=== PATIENT | male | born 1935 | race Caucasian/White ===

== ENCOUNTER 2016-12-14 14:20 | Inpatient (IN) | payer MEDICARE, BC ==
[~2016-12-14] VITALS: Ht 182.9 cm; Wt 92.0 kg
--- NOTE | ~2016-12-14 | FU ---
[facility] Nutrition Therapy DATE: 12/17/16 Patient: JUNIOR Hannah RAINUGHERTY Physician: STEPHANIE Address: [address] [facility] Room/Bed: [address], Zip: [place] [address] Admit Date: 12/14/16 Date of : 35 Height: 6 0 Weight: 202 92 NUTRITION MONITORING/FOLLOW-UP: Reason: Nutrition follow-up/comfort care note Diet: NPO Assessment: [facility] chart reviewed, events noted. Patient is now comfort measures only. RD intervention not appropriate, see recs below. Recommendations: Please consult RD with any further nutritional needs. Status: Comfort care only Respectfully, Vania Sandoval RD, LD Food and Nutritional Services [facility] cc: client file
--- NOTE | ~2016-12-14 | EKG ---
PATIENT: JUNIOR SANDRA UNIT #: [id number] Ventricular Rate: 108 BPM Atrial Rate: 133 BPM QRS Duration: 130 ms Q-T Interval: 360 ms QTC Calculation(Bezet): 482 ms Calculated R Fossil: -47 degrees Calculated T Fossil: 105 degrees Diagnosis Line: Sinus tachycardia with frequent PAC's and PVC's Diagnosis Line: Left axis deviation Diagnosis Line: Left anterior fascicular block Diagnosis Line: Non-specific intra-ventricular conduction block Diagnosis Line: T wave abnormality, consider lateral ischemia Diagnosis Line: Abnormal ECG Diagnosis Line: When compared with ECG of 14-DEC-2016 18:44, Diagnosis Line: Rate faster and frequent PAC's present Diagnosis Line: QT has lengthened Diagnosis Line: Confirmed by MARIMAR SERNA MD ([id number]) on Diagnosis Line: 12/16/2016 12:22:20 PM INTERPRETING MD: JASPER
--- NOTE | ~2016-12-14 | CO ---
Unit #: [id number] #: [id number] Patient: JUNIOR Hannah FLORES [id number] [address] [address] [id number] I MR#: [id number] NAME: JUNIOR Hannah FLORES. ROOM: [facility] Age: 81 Sex: M Admission Date: 12/14/2016 : 1935 Attending Physician: Gregory Perales M.D. Primary Care Physician: Angélica Angeles Consultation Date: 12/14/2016 CONSULTATION REPORT HISTORY OF PRESENT ILLNESS Mr. Flores is an 81-year-old gentleman with a history of severe vascular disease who has had a previous aortobifemoral bypass, coronary artery bypass grafting and a thoracic aortic aneurysm repair with a long history of hypertension. He presents with diffuse abdominal pain that has been going on since last Thursday. He said today it became much more severe and was associated with dark foul smelling stool that was loose and multiple episodes of vomiting. In the emergency room he had severe abdominal pain that was unrelieved with morphine. CT scan was consistent with ischemic bowel with extensive portal venous gas. When I saw and evaluated the patient he had diffuse peritoneal sign. PAST MEDICAL HISTORY As above. 1. Reflux. 2. Osteoarthritis. 3. Previous ventral hernia repair with mesh. 4. Benign prostatic hypertrophy. 5. Chronic obstructive pulmonary disease. SOCIAL HISTORY Denies the use of tobacco or alcohol. He is a retired realtor. He is and his is at the bedside. She has dementia. Friends and other family members are available. FAMILY HISTORY Heart disease. ALLERGIES No allergies to medications. CURRENT MEDICATIONS 1. Testerol. 2. Lisinopril. 3. Omeprazole. 4. Lovastatin. 5. Ipratropium. 6. Flomax. 7. Ranexa. 8. Aspirin. REVIEW OF SYSTEMS Otherwise unremarkable. Unit #: [id number] #: [id number] Patient: JUNIOR Hannah FLORES PHYSICAL EXAMINATION GENERAL: He was awake, alert and oriented, but was complaining of severe abdominal pain and nausea. VITALS: Temperature in the emergency room initially was 98.3, pulse 117, respiratory rate 18, blood pressure 113/63. HEENT: No carotid bruits. LUNGS: Clear. HEART: Regular rhythm, but tachy. I did not appreciate a murmur. ABDOMEN: Diffusely distended and tender with guarding and rebound throughout despite having had morphine. He had multiple surgical scars. There is no incarcerated hernia. EXTREMITIES: no edema. NEUROLOGIC: Grossly intact. DIAGNOSTIC STUDIES IMAGING: CT scan, ischemic bowel with extensive portal venous gas, possible partial small bowel obstruction, previous aortobifemoral bypass. LABORATORY: Basic metabolic panel was noted to have serum CO2 of 18, BUN 75, creatinine 2, blood glucose 234, calcium 7.8, albumin 3.3. Hemoglobin 14.2, white blood cell count 12,100, Platelets 159,000. Lactic acid 3.1. ASSESSMENT/PLAN Patient with severe abdominal pain and CT evidence of ischemia bowel with peritoneal signs on examination and evidence of metabolic acidosis on labs. I discussed with the patient the diagnosis and treatment options. At this time we plan on doing emergent exploratory laparotomy with possible bowel resection. The patient understands the severity of the situation, but agrees to proceed. We discussed risks, benefits and complications, including the possibility of . The patient understands and agrees to proceed. Dictated by... Gregory Perales M.D. MIMI/carri TD: 12/15/2016 06:59 JOB #: [id number] CONSULTATION REPORT Page 1 of 1 X Gregory Perales MD CONSULTATION REPORT
--- NOTE | ~2016-12-14 | OR ---
Unit #: [id number] #: [id number] Patient: JUNIOR Hannah FLORES [id number] [address] [place], [place] [address] [id number] MR#: [id number] NAME: JUNIOR Hannah FLORES. ROOM: [facility] Date of Procedure: 12/14/2016 Admission Date: 12/14/2016 Surgeon: Gregory Perales M.D. : 1935 Attending Physician: Gregory Perales M.D. Primary Care Physician: Angélica Angeles OPERATIVE REPORT PREOPERATIVE DIAGNOSIS Ischemic small bowel. POSTOPERATIVE DIAGNOSIS Diffuse moderate to severe ischemic small bowel. PROCEDURES PERFORMED Exploratory laparotomy and lysis of adhesions. ANESTHESIA General endotracheal anesthesia. FLUIDS 4.5 L of normal saline for resuscitation. ESTIMATED BLOOD LOSS 150 mL. FINDINGS The patient had diffuse moderate to severe ischemic bowel from the ligament of Treitz to 40 cm from the ileocecal valve. There were several adhesions; none of which were obstructing. Colon was nonischemic. INDICATIONS FOR PROCEDURE An 81-year-old gentleman presents to the ER with severe abdominal pain that had been worsening since Thursday, and on radiologic examination, he had severe ischemic bowel with extensive portal venous gas. His exam was one of peritonitis. DESCRIPTION OF PROCEDURE The patient was transported after the initiation of resuscitation in the emergency room and administration of IV antibiotics, to the operating room. After induction of general endotracheal anesthesia, nasogastric tube and Polanco catheter were placed. His abdominal wall was clipped of hair and he was prepped and draped in the usual sterile fashion. A midline incision was made. We dissected down through the soft tissue and entered the peritoneal cavity. Upon entering the peritoneal cavity, cloudy turbid fluid and foul smell were noted. As I opened the fascia throughout the extent of the incision, there were a few adhesions to the anterior abdominal wall that were taken down by sharp dissection, but there were no enterotomies or injuries to the bowel. The small bowel was ischemic with some areas that were severe and some that were moderate, but Unit #: [id number] #: [id number] Patient: JUNIOR Hannah FLORES the ischemia extended from the ligament of Treitz to approximately 40 cm from the ileocecal valve. The ascending, transverse, and left colon down to the rectosigmoid were not ischemic. He just had diffuse small bowel ischemia. There was no segmental distribution, and resection would have required resection from the fourth portion of the duodenum to the distal ileum. I irrigated and ensured that the bowel was in the normal position with no twisting of the mesentery, and watched the bowel for at least 20 to 30 minutes and there was no improvement in the ischemia. I irrigated the peritoneal cavity and ensured there was good hemostasis. The NG tube was well positioned. At this point, I felt resection was not in the patient's best interest, so we put the bowel back in the anatomic position, again irrigated with warm saline, suctioned the irrigant out, and the irrigant came back clear. The fascia was closed with multiple #1 Vicryl interrupted sutures. The fascia was irrigated with saline and then closed with sterile skin willa. Dry sterile dressing was placed. The patient was transported to recovery. He will be admitted to the intensive care unit, and put on antibiotics and heparin drip, and we will continue to resuscitate and support him as needed. I had a long discussion with the family members that were present to include his , their close friend who helps care for the , and several nieces and nephews. We discussed the poor prognosis and the severity of the condition. None of them were in position to know about his living will or feel comfortable giving a DNR order. So, at this point, they are going to try to contact his brother, who is the health care surrogate and notify him of the condition of the patient and see if there is in fact a living will. The rest of family was in agreement with continued aggressive management at this point. Dictated by... Charito Licea/skylar TD: 12/15/2016 05:20 JOB #: [id number] OPERATIVE REPORT Page 1 of 1 X Gregory Perales MD PROCEDURE OPERATIVE NOTE
--- NOTE | ~2016-12-14 | CO ---
Unit #: [id number] #: [id number] Patient: JUNIOR Hannah FLORES [id number] [address] [place], [place] [address] [id number] MR#: [id number] NAME: JUNIOR Hannah FLORES. ROOM: [facility] Age: 81 Sex: M Admission Date: 12/14/2016 : 1935 Attending Physician: Gregory Perales M.D. Primary Care Physician: Angélica Angeles Consultation Date: 12/15/2016 CONSULTATION REPORT REASON FOR CONSULTATION Irregular heart rate and cardiac management. HISTORY OF PRESENT ILLNESS The patient is an 81-year-old male who follows with Dr. Moore. Most of his history had to be obtained from the chart and the patient's family. He is currently intubated, and is on mechanical ventilation. Reportedly, the patient has a history of coronary artery bypass grafting x3, atrial flutter with history of ablation, severe vascular disease with previous aortofemoral bypass, thoracic aortic aneurysm repair, hypertension, hyperlipidemia, peripheral arterial disease, GERD, BPH, osteoarthrosis. Reportedly, the patient has been having a diffuse abdominal pain that had been going on since last Thursday. On day of admission, it became more severe and was associated with dark, loose stool with multiple episodes of vomiting. Patient presented to the emergency room where he had severe abdominal pain that was unrelieved with morphine. A CT scan was consistent with ischemic bowel with extensive portal venous gas. His EKG showed sinus rhythm with PACs and his initial troponin was 0.04. I did talk some with the patient's sister. It has been determined that the patient's niece, Angeles, is the power of tree killer. Postoperatively, patient was initially extubated and brought to the Intensive Care Unit. However, he became more hypoxic and had to be intubated. The patient was started on a Oliver-Synephrine drip. However, this is now being discontinued. He is still on a heparin drip at this time. He does have a temperature of 101.8, heart rate 124, respirations 25, blood pressure 110/58, and he is oxygenating 94% on the ventilator. Some bleeding is noted through his NG-tube. PAST MEDICAL HISTORY 1. CABG x3, details unknown. 2. Atrial flutter with ablation, details unknown. 3. Infrarenal AAA repair with embolization of right common iliac artery in 2015. 4. Hypertension. 5. Hyperlipidemia. 6. Peripheral arterial disease. 7. Thoracic aortic aneurysm. 8. BPH. Unit #: [id number] #: [id number] Patient: JUNIOR SANDRA P 9. GERD. 10. Osteoarthritis. 11. COPD. PAST SURGICAL HISTORY 1. Vascular surgery. 2. CABG x3. 3. Previous ventral hernia repair with mesh. ALLERGIES No known allergies. HOME MEDICATIONS 1. Testerol 4 mg p.o. daily. 2. Lisinopril 20 mg p.o. daily. 3. Omeprazole 40 mg p.o. daily. 4. Crestor 40 mg p.o. daily. 5. Ipratropium bromate. 6. Flomax 0.4 mg twice daily. 7. Ranexa 500 mg p.o. daily. 8. Aspirin 81 mg p.o. daily. FAMILY HISTORY He has a family history of heart disease. SOCIAL HISTORY There is no use of tobacco or alcohol. He is a retired realtor. He does live with his who has dementia. His niece, Angeles Yañez, is the power of tree killer. PHYSICAL EXAMINATION GENERAL: Patient is unresponsive on the ventilator. VITAL SIGNS: Temperature 101.8, heart rate 124, respirations 25, blood pressure 110/58. He is 94% on the vent on mechanical ventilation. HEENT: Head is atraumatic, normocephalic. Pupils equal, round and reactive. Extraocular movements are intact. NECK: Supple. Trachea is midline. CHEST: Lungs are diminished bilaterally and he is on mechanical ventilation. CARDIOVASCULAR: S1, S2. Tachy. No murmurs, rubs or gallops appreciated. ABDOMEN: Has a surgical wound. No bowel sounds. SKIN: Warm and dry. EXTREMITIES: No clubbing or cyanosis. NEUROLOGIC: May attempt to open eyes but does not follow commands. DIAGNOSTIC STUDIES LABORATORY: White blood cells 2.6, hemoglobin 12.2, hematocrit 35, platelets 126, sodium 133, potassium 3.8, chloride 108, CO2 18, BUN 66, creatinine 1.7, glucose 114. ASSESSMENT 1. Ischemic bowel, status post exploratory laparotomy. 2. Coronary artery disease with history of CABG x3. 3. Peripheral arterial disease. 4. History of thoracic aortic aneurysm repair. 5. Hypertension. 6. Hyperlipidemia. 7. COPD. Unit #: [id number] #: [id number] Patient: JUNIOR Hannah FLORES 8. BPH. 9. Acute hypoxic respiratory failure requiring mechanical ventilation. 10. Sepsis with metabolic acidosis. PLAN At this time, patient will be continued on a heparin drip. The patient will be started on an amiodarone drip at 1 mg/minute for six hours and 0.5 mg a minute. Patient's magnesium will be replaced. Will trend troponins q.6 hours x2. Check a 2D echocardiogram now. The patient will have a troponin, EKG and a mag level in the morning. Dr. Willoughby has discussed with the patient's POA the patient's overall medical condition, prognosis and, at this time, the patient is a Full Code. Dictated by... Jenna Tejeda M.D. AM/pattie TD: 12/15/2016 13:06 JOB #: [id number] CONSULTATION REPORT Page 1 of 1 X Sandra Lopes APRN X CONSULTATION REPORT
--- NOTE | ~2016-12-14 | A ---
[facility] Nutrition Therapy DATE: 12/15/16 Patient: JUNIOR Hannah FLORES Physician: STEPHANIE Address: [address] [place] [address] Room/Bed: [address], Zip: [place] [address] Admit Date: 12/14/16 Date of : 35 Height: 6 0 Weight: 194 88 NUTRITIONAL ASSESSMENT: REASON: NPO status, intubated in ICU 81 yo male admitted for ischemic bowel PMH: COPD, GERD, CAD, CABG, PVD, HTN, HLD, s/p thoracic aortic aneurysm repair, OA, hernia repair with mesh Anthropometrics: Ht: 6'0" wt: 88 kg BMI: 26.3 Labs: Na+ 133 Gluc 146 BUN 66 Creat 1.7 Ca++ 6.5 Alb 2.1 AST 208 ALT 194 Mg++ 1.4 Phos 2.1 Meds: Heparin, solu-medrol, NaCl + phenylephrine HCl, zofran, Kcl, protonix I/O & Bowel function: 8588/765, No documented BM, NG to LWS with 300 cc output x 24 hrs Skin Integrity: Closed midline abdominal dressing with bleeding Edema: none noted Estimated Nutrition Needs: 3685-9630 kcals (25-30 kcals/kg) 88-114 grams protein (1-1.3 grams/kg) Assessment: Chart reviewed, evens noted. 81 yo male admitted for ischemic bowel now POD#1 for ex lap + HENRY. Pt is intubated in the ICU on pressor support. Sepsis and SHAYY noted. No plans for nutrition support at this time. Please see recommendations below. Dx: Inadequate protein-energy intake RT clinical condition, bowel surgery AEB NPO status. Intervention: 1. NPO 2. TPN vs. EN once medically feasible Monitoring, Evaluation and Goals: 1. Nutrition; meet the pt's estimated nutritional needs (TPN vs. EN once feasible) 2. Improve labs; Na+, Mg++, phos, glucose, BUN, creat, AST, ALT 3. GI; improve GI function, promote regular BMs Recommendations: 1. Replete electrolytes to WNL PRN (Na+, Mg++, Phos low). [facility] Nutrition Therapy DATE: 12/15/16 Patient: JUNIOR Hannah FLORES Physician: STEPHANIE Address: [address] [facility] Room/Bed: [address], Zip: [place] [address] Admit Date: 12/14/16 Date of : [birth year] Height: 6 0 Weight: 194 88 2. Once the pt is hemodynamically stable, consider initiating enteral nutrition vs. TPN to meet the pt's estimated nutrient needs as appropriate per surgical team discretion. -If enteral nutrition is ordered, recommend starting trickle feeds with (semi-elemental formula) Vital 1.5 @ 15 mL/hr. Monitor closely for symptoms of enteral intolerance. Increase by 10 mL q 12 hrs as tolerated to goal of 65 mL/hr to provide: 2340 kcals/ 105 grams protein/ 1186 mL free H20 3. If TPN ordered by MD, recommend 25% dextrose solution with dosing per pharmacy. Recommend to gradually increase to goal rate of 85 mL/hr to provide: 1734 kcals dextrose 2142 kcals total 102 grams protein GUR= 4.02 4. Obtain current triglyceride level to determine frequency of lipid cycling. Monitor electrolytes and glucose levels closely. Pt is at severe nutritional risk. RD will follow hospital course per protocol. Respectfully, ZENON DE LUNA RD, LD Food and Nutritional Services [facility] cc: client file
--- NOTE | ~2016-12-14 | CT4 ---
[facility] A Service of [facility] RADIOLOGY TEXT RESULTS PATIENT: JUNIOR Hannah FLORES LOCATION: [facility] CICCU3-16 : 35 UNIT #: [id number] AGE: [address]: Gregory Perales MD SEX: M ORDER DR: [id number] [facility] [address] [facility]. [place], [place] [address] [id number] MR#: [id number] #: [id number] NAME: JUNIOR Hannah FLORES. : 1935 SEX: M STUDY DATE/TIME: 12/14/2016 16:42 UNIT: CEDOF ROOM: [id number] STUDY DESCRIPTION: CT Abd and Pelv Wo Cont Attending Physician: Vandana Mathews M.D. Ordering Physician: Juan C Beard M.D. Primary Care Physician: Angélica Angeles MEDICAL IMAGING REPORT This report is preliminary unless electronic signature is present EXAM CT abdomen and pelvis without contrast DATE 12/14/2016 HISTORY Abdominal pain, vomiting, diarrhea which began Thursday night on 12/10/2016. Generalized weakness. Midline to right-sided abdominal pain. History of aneurysm, bypass, hernia repair. COMPARISON CT angiography of the abdomen and pelvis 02/26/2016. PROCEDURE 3 mm noncontrast axial images through the abdomen and pelvis. Enteric contrast was not administered. Sagittal and coronal reformatted images were obtained. This CT exam was performed with one or more of the following radiation dose reduction techniques: Automatic exposure control, adjustment of mA and/or kV according to patient size, and iterative reconstruction. FINDINGS ABDOMEN FINDINGS: Abnormal, segmentally thickened small bowel loops in the left mid abdomen thought predominantly to represent the jejunum. There are multiple abnormally air-distended small bowel loops with air-fluid levels. Additionally, extensive small bowel pneumatosis is identified predominantly in the left hemiabdomen, with gas in multiple mesenteric vessels, extending along SMV, and extensive portal venous gas is demonstrated within the liver. Findings are consistent with the appearance of bowel ischemia in the appropriate clinical context. There are some decompressed small bowel loops in the right lower quadrant [facility] A Service of [facility] RADIOLOGY TEXT RESULTS PATIENT: JUNIOR Hannah FLORES LOCATION: [address] : 35 UNIT #: [id number] AGE: [address]: Gregory Perales MD SEX: M ORDER DR: of the abdomen. Questionable transition zone within the midline of the abdomen, worrisome for at least partial small bowel obstruction. Emphysema. Cholecystectomy. Spleen, adrenal glands and kidneys have a normal noncontrast appearance. Pancreas is atrophic. Aortobiiliac endograft repair of infrarenal abdominal aortic aneurysm. The endograft appears stable in position. The endosac measures about 4.8 cm compared to 5 cm on 02/26/2016. Right common iliac [id number] iliac artery stent in place. Amplatz occluder device within the right internal iliac artery again noted. PELVIS FINDINGS: Small quantity pelvic free fluid. Urinary bladder and rectum within normal limits. Sparse diverticular changes in the sigmoid colon. Small right inguinal hernia containing only fat. Lumbar dextroscoliosis with multilevel degenerative changes. No acute osseous abnormalities are identified. Old left rib fractures. IMPRESSION 1. Abnormal exam. The major findings were called to the emergency room at [facility] prior to the time of this dictation. 2. Major finding is features of small bowel ischemia with extensive portal venous gas. The most abnormal segment of small bowel is thought to represent the mid jejunum in the left mid abdomen. 3. Abnormally dilated bowel loops, with relatively decompressed distal small bowel. While the findings could represent changes of partial small bowel obstruction, the overall dilation of small bowel loops is favored to represent small bowel ileus related to aforementioned suspected ischemic changes. 4. Trace pelvic free fluid. No abscess. 5. Emphysema. 6. 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 Endosac size is slightly smaller, measuring 4.8 cm compared to 5 cm since 02/26/2016. Dictated by... Evelyne Carlson M.D. THIS IS AN ELECTRONICALLY VERIFIED REPORT Evelyne Carlson M.D. at 12/15/2016 9:55 AM [facility]/abiodun TD: 12/14/2016 19:31 [facility] A Service of [facility] RADIOLOGY TEXT RESULTS PATIENT: JUNIOR Hannah FLORES LOCATION: [address] : 35 UNIT #: [id number] AGE: [address]: Gregory Perales MD SEX: M ORDER DR: JOB #: [id number] MEDICAL IMAGING REPORT Page 1 of 1 COPY
--- NOTE | ~2016-12-14 | CR72 ---
[facility] A Service of [facility] & [facility] RADIOLOGY TEXT RESULTS PATIENT: JUNIOR Hannah FLORES LOCATION: [place] [address] : 35 UNIT #: [id number] AGE: [address]: Gregory Perales MD SEX: M ORDER DR: [id number] [facility] [address] [place], [place] [address] [id number] MR#: [id number] Acc #: [id number] NAME: JUNIOR Hannah FLORES. : 1935 SEX: M STUDY DATE/TIME: 12/16/2016 5:44 UNIT: [facility] ROOM: [facility] STUDY DESCRIPTION: CR Chest Single View Portable Attending Physician: Gregory Perales M.D. Ordering Physician: Reilly Richardson M.D. Primary Care Physician: Angélica Angeles MEDICAL IMAGING REPORT This report is preliminary unless electronic signature is present EXAM Portable AP view of the chest. COMPARISON December 15, 2016 at 03:30 a.m. and 12:47 a.m. as well as February 19, 2015. INDICATIONS 81-year-old male with respiratory failure for 2 days requiring endotracheal intubation and ventilatory support. Patient is post exploratory laparotomy for ischemic bowel 2 days ago. FINDINGS Endotracheal tube is again noted, with the tip terminating approximately 5.2 cm above the lizette. Gastric suction tube side port is within the gastric body. Right internal jugular catheter tip terminates in the upper SVC, grossly stable. Changes of CABG again noted. Cardiomediastinal silhouette is within normal limits for portable technique. There are low lung volumes. There is stable right upper lobe atelectasis versus pneumonia. Finding has more the appearance of pneumonia, but clinical correlation is recommended. No significant pleural effusion is definitely seen, although evaluation is limited due to low lung volumes and elevation of the diaphragms. No evidence of pneumothorax. Dictated by... Rubin Gonzales M.D. THIS IS AN ELECTRONICALLY VERIFIED REPORT Rubin Gonzales M.D. at 12/19/2016 11:24 AM CLEMENTINE/shanti TD: 12/16/2016 12:56 JOB #: [id number] [facility] A Service of [facility] & [facility] RADIOLOGY TEXT RESULTS PATIENT: JUNIOR Hannah FOLRES LOCATION: [facility] 223-01 : 35 UNIT #: [id number] AGE: [address]: Gregory Perales MD SEX: M ORDER DR: MEDICAL IMAGING REPORT Page 1 of 1 COPY
--- NOTE | ~2016-12-14 | EKG ---
PATIENT: JUNIOR SANDRA UNIT #: [id number] Ventricular Rate: 90 BPM Atrial Rate: 90 BPM P-R Interval: 184 ms QRS Duration: 126 ms Q-T Interval: 350 ms QTC Calculation(Bezet): 428 ms P [place]: 55 degrees Calculated R [place]: -49 degrees Calculated T [place]: 70 degrees Diagnosis Line: Sinus rhythm with frequent Premature ventricular Diagnosis Line: complexes Diagnosis Line: Left axis deviation Diagnosis Line: Left ventricular hypertrophy with QRS widening Diagnosis Line: Inferior infarct , age undetermined Diagnosis Line: T wave abnormality, consider lateral ischemia Diagnosis Line: Abnormal ECG Diagnosis Line: No previous ECGs available Diagnosis Line: Confirmed by MIRANDA WINN MD ([id number]) on 12/15/2016 Diagnosis Line: 10:05:51 PM INTERPRETING MD: TATUM HAQUE
--- NOTE | ~2016-12-14 | CR71 ---
[facility] A Service of [facility] RADIOLOGY TEXT RESULTS PATIENT: JUNIOR Hannah FLORES LOCATION: [address] : 35 UNIT #: [id number] AGE: [address]: Gregory Perales MD SEX: M ORDER DR: [id number] [place] [id number] [facility]. [place], [place] [address] [id number] I MR#: [id number] Acc #: [id number] NAME: JUNIOR Hannah FLORES. : 1935 SEX: M STUDY DATE/TIME: 12/15/2016 0:47 UNIT: [facility] ROOM: [facility] STUDY DESCRIPTION: CR Chest Single View Attending Physician: Gregory Perales M.D. Ordering Physician: Reilly Richarsdon M.D. Primary Care Physician: Angélica Angeles MEDICAL IMAGING REPORT This report is preliminary unless electronic signature is present EXAM Chest x-ray, 12/15/2016. HISTORY Respiratory failure. Endotracheal tube placement. TECHNIQUE AP portable chest x-ray. FINDINGS Newly placed endotracheal tube tip in good position in the mid thoracic trachea about 4.5 cm above the lizette. Right IJ central line tip in good position in the upper SVC, no pneumothorax. NG tube extends below the diaphragm. Dense focal airspace consolidation in the right midlung. Mild diffuse interstitial opacity throughout the remainder of both lungs. Low lung volumes with bibasilar pulmonary atelectasis. No visible pleural effusion. Postop changes CABG. Heart size is normal. IMPRESSION 1. Support equipment in good position as noted above. 2. No pneumothorax. 3. CABG. Heart size normal. 4. Dense airspace consolidation right midlung. Mild diffuse interstitial opacity throughout the remaining portions of both lungs. Shallow lung expansion. Dictated by... Denton Cason M.D. THIS IS AN ELECTRONICALLY VERIFIED REPORT Denton Cason M.D. at 12/15/2016 8:56 PM [facility] A Service of [facility] RADIOLOGY TEXT RESULTS PATIENT: JUNIOR Hannah FLORES LOCATION: [address] : 35 UNIT #: [id number] AGE: [address]: Gregory Perales MD SEX: M ORDER DR: JUDE/amari TD: 12/15/2016 09:08 JOB #: [id number] MEDICAL IMAGING REPORT Page 1 of 1 COPY
--- NOTE | ~2016-12-14 | CO ---
Unit #: [id number] #: [id number] Patient: JUNIOR Hannah FLORES [id number] [place] [id number] [facility] [place] [facility]. [place], [place] [address] [id number] I MR#: [id number] NAME: JUNIOR Hannah FLORES. ROOM: [facility] Age: 81 Sex: M Admission Date: 12/14/2016 : 1935 Attending Physician: Gregory Perales M.D. Primary Care Physician: Angélica Angeles CONSULTATION REPORT HISTORY OF PRESENT ILLNESS Mr. Flores is an 81-year-old white male, presented to the emergency room at [facility] with abdominal pain. A CT scan was done, which revealed small-bowel ischemia with extensive portal venous gas, abnormally dilated bowel loops, consistent trace free pelvic fluid. Emphysematous changes in the lungs, also was noted to have aortoiliac endo stent of the infrarenal abdominal aorta. He was taken to surgery by Dr. Perales and underwent exploratory laparotomy, was found to have ischemic bowel with extensive gas, small-bowel obstruction, and history of aortofemoral bypass. He was apparently extubated in recovery room. He arrived in the ICU. He was quite dyspneic and difficulty maintaining his O2 saturation. We were called and the patient intubated by ER physician. Initial blood gases; pH 7.28, pCO2 of 38, PO2 of 54 on 100% nonrebreathing mask. Post intubation pH 7.22, pCO2 of 48, PO2 of 104 on 100%, assist control of 14, tidal volume 550, 5 of PEEP. Followup gases this morning on tidal volume 600, rate of 18, PEEP of 5, and 100%, pH 7.39, pCO2 of 27, PO2 of 121. Chemistry significant for initial creatinine of 2.0, has fallen to 1.7 this morning. Phosphorus 2.1, magnesium 1.4. AST and ALT 208 and 194 respectively. Lactic acid initially 3.1 and 5.3, currently 3.0. PAST MEDICAL HISTORY Little available. He has history of coronary artery disease, status post CABG x3; atrial flutter with ablation, apparently intolerance to beta blockers; history of hypertension; hyperlipidemia; peripheral artery disease. He has had an infrarenal aortic aneurysm repair with embolization of the right common iliac artery x2. He has a history of thoracic aneurysm, endovascular stents. BPH, GERD, and osteoarthritis. HOME MEDICATIONS Listed include vitamin D, Centrum Silver, glucosamine chondroitin, garlic, Androderm, Prilosec, Lipitor, Zetia, Zestril, Hytrin, Colace, and Anusol. SOCIAL HISTORY Apparently, he is a nonsmoker. No alcohol. REVIEW OF SYSTEMS Not possible, the patient intubated. FAMILY HISTORY Not possible, the patient intubated. PHYSICAL EXAMINATION GENERAL: White male, orally intubated, sedated on vent. VITAL SIGNS: Blood pressure is 106/61, pulse is 129, respiratory rate 27, Unit #: [id number] #: [id number] Patient: SANDRA,JERRY P and temperature 101.8. HEENT: Normocephalic and atraumatic. Pupils are equal, round, and reactive, pinpoint. No scleral icterus. Orally intubated. NG tube in place. NECK: Supple. Trachea midline. No cervical or supraclavicular lymphadenopathy. LUNGS: Occasional scattered rhonchi. CARDIAC: Regular rate and rhythm. Could not appreciate murmur, rub, or gallop. ABDOMEN: Postop bandaged lower midline abdominal scar with some weeping of fluid. EXTREMITIES: Without clubbing, cyanosis, or edema. Diminished peripheral pulses. NEURO: Sedated on vent. SKIN: Warm and dry. Feet are warm. DIAGNOSTIC STUDIES LABORATORY RESULTS: As previously noted. IMAGING STUDIES: Chest x-ray, increased interstitial markings with more dense infiltrate right upper lobe. No previous x-rays for comparison. IMPRESSION 1. Postop respiratory failure. 2. 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 3. Severe sepsis. 4. Acute kidney injury. 5. Hypophosphatemia. 6. Hypomagnesemia. 7. Underlying chronic obstructive pulmonary disease. 8. Coronary artery disease, status post coronary artery bypass grafting. 9. Peripheral vascular disease. 10. Hypertension. 11. Hyperlipidemia. PLAN Vent support. Broad-spectrum antibiotics, pressors, fluid resuscitation. Check dimas-cultures, sputum culture. Cover for aspiration pneumonia. The patient currently on heparin for presumed embolic ischemic event. Further recommendations pending this. Prognosis is poor. Dictated by... Reilly Richardson M.D. DAVID/skylar TD: 12/15/2016 23:55 JOB #: [id number] Unit #: [id number] #: [id number] Patient: JUNIOR Hannah FLORES CONSULTATION REPORT Page 1 of 1 X Reilly Richardson MD CONSULTATION REPORT
--- NOTE | ~2016-12-14 | CR72 ---
[facility] A Service of [facility] & [facility] RADIOLOGY TEXT RESULTS PATIENT: JUNIOR Hannah FLORES LOCATION: [place] [id number] : 35 UNIT #: [id number] AGE: [address]: Gregory Perales MD SEX: M ORDER DR: [id number] [facility] [address] [place], [place] [address] [id number] I MR#: [id number] Acc #: [id number] NAME: JUNIOR Hannah FLORES. : 1935 SEX: M STUDY DATE/TIME: 12/15/2016 3:30 UNIT: [facility] ROOM: [facility] STUDY DESCRIPTION: CR Chest Single View Portable Attending Physician: Gregory Perales M.D. Ordering Physician: Gregory Perales M.D. Primary Care Physician: Angélica Angeles MEDICAL IMAGING REPORT This report is preliminary unless electronic signature is present EXAM Chest x-ray 12/15/2016 (0330 hours) HISTORY Respiratory failure. Follow up cardiopulmonary status. TECHNIQUE AP portable chest x-ray. FINDINGS The exam shows no change since the earlier study this morning. Lung volumes are low. Diffuse interstitial infiltrate or edema throughout both lungs with more dense airspace consolidation in the right upper lobe, unchanged. Low lung volumes. Postop changes CABG. ETT, right IJ central line and NG tube remain in good position. IMPRESSION Stable portable chest radiograph, unchanged since earlier today. Dictated by... Denton Cason M.D. THIS IS AN ELECTRONICALLY VERIFIED REPORT Denton Cason M.D. at 12/15/2016 8:56 PM JUDE/ness TD: 12/15/2016 09:15 JOB #: [id number] MEDICAL IMAGING REPORT Page 1 of 1 COPY
[~2016-12-14 14:20] MED LIST: ANDRODERM TOP; ANUSOL30 GM EXT; CENTRUM SILVER PO; COLACE; COLACE PO; GARLIQUE PO; GLUCOSAMINE CHONDROI PO; HYTRIN PO; LEVAQUIN PO; LIPITOR PO; LISINOPRIL PO; PRILOSEC PO; VIT E PO; ZETIA PO
[2016-12-14 16:07] LABS: BASOPHIL% 0.1 % (0-2.5); HEMATOCRIT 41.6 % (38.0-50.0); HEMOGLOBIN 14.2 gm/dL (13.0-16.0); LYMPHOCYTE# 0.5 X10e3 (1.0-3.5); LYMPHOCYTE% 4.4 % (17.0-45.0); MEAN CELL VOLUME 96.6 FL (83-96); MEAN CORPUSCULAR HEMOGLOBIN 33.1 PG (28-34); MEAN CORPUSCULAR HGB CONC 34.3 g/dL (30-36); MEAN PLATELET VOLUME 8.3 FL (6.5-11.5); MONOCYTE% 8.5 % (3.0-12.0); NEUTROPHIL# 10.5 X10e3 (1.5-7.1); PLATELET COUNT 159 X10e3 (140-420); WHITE BLOOD COUNT 12.1 X10e3 (4.0-10.5)
[2016-12-14 16:11] LABS: DIFF IND NO
[2016-12-14 16:42] LABS: ALBUMIN SERUM 3.3 g/dL (3.5-5.0); BILIRUBIN, DIRECT 0.3 mg/dL (0.0-0.2); BILIRUBIN,INDIRECT 0.7 mg/dL (0.0-0.9); BUN/CREATININE RATIO 37.5; CALCIUM SERUM 7.8 mg/dL (8.4-10.2); GLOM FILT RATE Estimated 30.4 mL/min (>60); POTASSIUM 3.9 mmol/L (3.5-5.1); PROTEIN TOTAL SERUM 7.1 g/dL (6.0-8.3)
[2016-12-14 22:52] LABS: ARTERIAL BLD GAS O2 SATURATION 82.2 % (90.0-100.0); ARTERIAL BLOOD GAS HCO3 18.3 mmol/L; ARTERIAL BLOOD GAS PCO2 38.6 mmHg (35.0-45.0); ARTERIAL BLOOD GAS pH 7.284 (7.350-7.450)
[2016-12-14 22:53] LABS: ARTERIAL BLOOD GAS ART SITE LEFT BRACHIAL; ARTERIAL BLOOD GAS DELIVERY NON REBREATHER MASK; ARTERIAL BLOOD GAS PO2 54.7 mmHg (80.0-100); ARTERIAL DRAW? YES
[2016-12-14 23:38] LABS: ARTERIAL BLD GAS O2 SATURATION 85.5 % (90.0-100.0); ARTERIAL BLOOD GAS CARBOXY HB 0.8 %sat (0.0-9.0); ARTERIAL BLOOD GAS HCO3 16.5 mmol/L; ARTERIAL BLOOD GAS MET HB 1.2 %sat (0.0-2.0)
[2016-12-14 23:39] LABS: ARTERIAL BLOOD GAS ART SITE RIGHT FEMORAL; ARTERIAL BLOOD GAS DELIVERY BIPAP 14/6; ARTERIAL DRAW? YES
[2016-12-14 23:40] LABS: BASOPHIL% 0.3 % (0-2.5); DIFF IND YES; EOSINOPHIL% 0.2 % (0.0-7.0); HEMATOCRIT 41.6 % (38.0-50.0); HEMOGLOBIN 14.2 gm/dL (13.0-16.0); LYMPHOCYTE# 0.3 X10e3 (1.0-3.5); LYMPHOCYTE% 13.7 % (17.0-45.0); MEAN CELL VOLUME 98.5 FL (83-96); MEAN CORPUSCULAR HEMOGLOBIN 33.5 PG (28-34); MEAN PLATELET VOLUME 8.3 FL (6.5-11.5); MONOCYTE# 0.1 X10e3 (0-1.0); MONOCYTE% 5.2 % (3.0-12.0); NEUTROPHIL# 1.9 X10e3 (1.5-7.1); NEUTROPHIL% 80.6 % (40-75); PLATELET COUNT 140 X10e3 (140-420); RED BLOOD COUNT 4.23 X10e (3.90-5.60); RED CELL DISTRIBUTION WIDTH 13.5 % (11.0-15.5); WHITE BLOOD COUNT 2.3 X10e3 (4.0-10.5)
[2016-12-15 00:06] LABS: BUN/CREATININE RATIO 35.78; CALCIUM SERUM 7.3 mg/dL (8.4-10.2); CREATININE SERUM 1.9 mg/dL (0.6-1.4); GLOM FILT RATE Estimated 32.3 mL/min (>60); MAGNESIUM 1.7 mg/dL (1.6-3.0); POTASSIUM 4.4 mmol/L (3.5-5.1)
[2016-12-15 00:09] LABS: PLATELET ESTIMATE DECREASED (NORMAL)
[2016-12-15 00:11] LABS: RBC NORMAL YES
[2016-12-15 00:26] LABS: %MB 8.8 % (0.0-4.0); MB 7.2 ng/ml
[2016-12-15 01:03] LABS: ARTERIAL BLD GAS O2 SATURATION 95.4 % (90.0-100.0); ARTERIAL BLOOD GAS CARBOXY HB 0.5 %sat (0.0-9.0); ARTERIAL BLOOD GAS MET HB 0.7 %sat (0.0-2.0); ARTERIAL BLOOD GAS PCO2 48.1 mmHg (35.0-45.0); ARTERIAL BLOOD GAS pH 7.227 (7.350-7.450)
[2016-12-15 01:04] LABS: ARTERIAL BLOOD GAS ALLEN TEST NORMAL; ARTERIAL BLOOD GAS ART SITE RIGHT RADIAL; ARTERIAL BLOOD GAS DELIVERY VENT; ARTERIAL BLOOD GAS VENT MODE AC; ARTERIAL DRAW? YES
[2016-12-15 04:51] LABS: ARTERIAL BLD GAS O2 SATURATION 97.7 % (90.0-100.0); ARTERIAL BLOOD GAS CARBOXY HB 0.4 %sat (0.0-9.0); ARTERIAL BLOOD GAS HCO3 16.8 mmol/L; ARTERIAL BLOOD GAS MET HB 0.9 %sat (0.0-2.0); ARTERIAL BLOOD GAS PCO2 27.6 mmHg (35.0-45.0); ARTERIAL BLOOD GAS pH 7.393 (7.350-7.450)
[2016-12-15 04:55] LABS: ARTERIAL BLOOD GAS ALLEN TEST NORMAL; ARTERIAL BLOOD GAS ART SITE LEFT RADIAL; ARTERIAL BLOOD GAS DELIVERY VENT; ARTERIAL BLOOD GAS VENT MODE AC; ARTERIAL DRAW? YES
[2016-12-15 05:18] LABS: LYMPHOCYTE# 0.2 X10e3 (1.0-3.5); LYMPHOCYTE% 8.5 % (17.0-45.0); MEAN CELL VOLUME 96.4 FL (83-96); MEAN CORPUSCULAR HEMOGLOBIN 33.7 PG (28-34); MEAN CORPUSCULAR HGB CONC 34.9 g/dL (30-36); MEAN PLATELET VOLUME 8.6 FL (6.5-11.5); MONOCYTE# 0.3 X10e3 (0-1.0); MONOCYTE% 10.3 % (3.0-12.0); NEUTROPHIL# 2.1 X10e3 (1.5-7.1); NEUTROPHIL% 81.2 % (40-75); PLATELET COUNT 126 X10e3 (140-420); RED BLOOD COUNT 3.63 X10e (3.90-5.60); RED CELL DISTRIBUTION WIDTH 13.1 % (11.0-15.5); WHITE BLOOD COUNT 2.6 X10e3 (4.0-10.5)
[2016-12-15 05:46] LABS: HEMOGLOBIN 12.2 gm/dL (13.0-16.0)
[2016-12-15 05:49] LABS: DIFF IND NO
[2016-12-15 06:24] LABS: ALBUMIN SERUM 2.1 g/dL (3.5-5.0); BILIRUBIN,TOTAL 1.3 mg/dL (0.2-2.0); BUN/CREATININE RATIO 38.82; CALCIUM SERUM 6.5 mg/dL (8.4-10.2); CREATININE SERUM 1.7 mg/dL (0.6-1.4); MAGNESIUM 1.4 mg/dL (1.6-3.0); PHOSPHOROUS 2.1 mg/dL (2.5-4.6); POTASSIUM 3.8 mmol/L (3.5-5.1); PROTEIN TOTAL SERUM 4.5 g/dL (6.0-8.3)
[2016-12-15 09:11] LABS: URINE SOURCE CLEAN CATCH
[2016-12-15 09:19] LABS: URINE APPEARANCE CLOUDY; URINE BILIRUBIN NEG (NEG); URINE BLOOD 3+ (NEG); URINE COLOR YELLOW; URINE GLUCOSE NEG (NEG); URINE KETONE NEG (NEG); URINE LEUKOCYTE ESTERASE TRACE (NEG); URINE NITRATE NEG (NEG); URINE PH 5.5 (5-8); URINE PROTEIN 2+ (NEG); URINE SPECIFIC GRAVITY 1.019 (1.003-1.035)
[2016-12-15 09:24] LABS: U HYALINE CASTS AUWI 0-2 /[LPF]; URINE BACTERIA AUWI NEG (NEGATIVE); URINE SQUAMOUS EPITHELIAL CELL OCC /[HPF]
[2016-12-15 09:45] LABS: CULTURE INDICATED? NO
[2016-12-15 11:10] LABS: %MB 2.3 % (0.0-4.0); MB 27.7 ng/ml
[2016-12-15 11:33] LABS: ARTERIAL BLOOD GAS CARBOXY HB 0.4 %sat (0.0-9.0); ARTERIAL BLOOD GAS HCO3 15.8 mmol/L; ARTERIAL BLOOD GAS MET HB 0.8 %sat (0.0-2.0); ARTERIAL BLOOD GAS PCO2 28.5 mmHg (35.0-45.0)
[2016-12-15 11:34] LABS: ARTERIAL BLOOD GAS ALLEN TEST NORMAL; ARTERIAL BLOOD GAS ART SITE RIGHT RADIAL; ARTERIAL BLOOD GAS DELIVERY VENT; ARTERIAL BLOOD GAS PO2 61.9 mmHg (80.0-100); ARTERIAL BLOOD GAS VENT MODE A/C; ARTERIAL DRAW? YES
[2016-12-15 17:10] LABS: %MB 2.1 % (0.0-4.0); MB 34.6 ng/ml
[2016-12-15 17:13] LABS: ARTERIAL BLD GAS O2 SATURATION 90.5 % (90.0-100.0); ARTERIAL BLOOD GAS CARBOXY HB 0.4 %sat (0.0-9.0); ARTERIAL BLOOD GAS HCO3 14.4 mmol/L; ARTERIAL BLOOD GAS MET HB 0.8 %sat (0.0-2.0); ARTERIAL BLOOD GAS PCO2 27.2 mmHg (35.0-45.0); ARTERIAL BLOOD GAS pH 7.332 (7.350-7.450)
[2016-12-15 17:16] LABS: ARTERIAL BLOOD GAS ALLEN TEST NORMAL; ARTERIAL BLOOD GAS ART SITE RIGHT RADIAL; ARTERIAL BLOOD GAS PO2 63.6 mmHg (80.0-100); ARTERIAL DRAW? YES
[2016-12-15 17:17] LABS: ARTERIAL BLOOD GAS DELIVERY VENT; ARTERIAL BLOOD GAS VENT MODE A/C
[2016-12-15 23:05] LABS: ARTERIAL BLOOD GAS CARBOXY HB 0.5 %sat (0.0-9.0); ARTERIAL BLOOD GAS MET HB 0.7 %sat (0.0-2.0); ARTERIAL BLOOD GAS PCO2 27.8 mmHg (35.0-45.0); ARTERIAL BLOOD GAS PO2 53.6 mmHg (80.0-100); ARTERIAL BLOOD GAS pH 7.341 (7.350-7.450)
[2016-12-15 23:06] LABS: ARTERIAL BLOOD GAS ALLEN TEST NORMAL; ARTERIAL BLOOD GAS ART SITE LEFT RADIAL; ARTERIAL BLOOD GAS DELIVERY VENT; ARTERIAL BLOOD GAS VENT MODE AC; ARTERIAL DRAW? YES
[2016-12-16 05:34] LABS: BASOPHIL% 0.1 % (0-2.5); EOSINOPHIL% 0.3 % (0.0-7.0); HEMATOCRIT 34.6 % (38.0-50.0); LYMPHOCYTE# 0.2 X10e3 (1.0-3.5); LYMPHOCYTE% 2.8 % (17.0-45.0); MEAN CELL VOLUME 96.6 FL (83-96); MEAN CORPUSCULAR HEMOGLOBIN 33.5 PG (28-34); MEAN CORPUSCULAR HGB CONC 34.7 g/dL (30-36); MEAN PLATELET VOLUME 8.7 FL (6.5-11.5); MONOCYTE# 0.2 X10e3 (0-1.0); NEUTROPHIL# 7.3 X10e3 (1.5-7.1); NEUTROPHIL% 94.8 % (40-75); PLATELET COUNT 112 X10e3 (140-420); RED BLOOD COUNT 3.59 X10e (3.90-5.60); RED CELL DISTRIBUTION WIDTH 13.5 % (11.0-15.5)
[2016-12-16 05:36] LABS: WHITE BLOOD COUNT 7.7 X10e3 (4.0-10.5)
[2016-12-16 05:37] LABS: DIFF IND NO
[2016-12-16 06:31] LABS: ARTERIAL BLD GAS O2 SATURATION 93.2 % (90.0-100.0); ARTERIAL BLOOD GAS CARBOXY HB 0.4 %sat (0.0-9.0); ARTERIAL BLOOD GAS HCO3 16.8 mmol/L; ARTERIAL BLOOD GAS MET HB 0.8 %sat (0.0-2.0); ARTERIAL BLOOD GAS PCO2 29.3 mmHg (35.0-45.0); ARTERIAL BLOOD GAS pH 7.368 (7.350-7.450)
[2016-12-16 06:32] LABS: ARTERIAL BLOOD GAS ART SITE RIGHT RADIAL; ARTERIAL BLOOD GAS DELIVERY VENT; ARTERIAL BLOOD GAS PO2 70.3 mmHg (80.0-100); ARTERIAL BLOOD GAS VENT MODE AC; ARTERIAL DRAW? YES
[2016-12-16 06:57] LABS: ALBUMIN SERUM 2.1 g/dL (3.5-5.0); BILIRUBIN,TOTAL 1.3 mg/dL (0.2-2.0); BUN/CREATININE RATIO 40.62; CALCIUM SERUM 6.2 mg/dL (8.4-10.2); CREATININE SERUM 1.6 mg/dL (0.6-1.4); GLOM FILT RATE Estimated 39.8 mL/min (>60); MAGNESIUM 1.9 mg/dL (1.6-3.0); PHOSPHOROUS 4.1 mg/dL (2.5-4.6); POTASSIUM 3.8 mmol/L (3.5-5.1); PREALBUMIN 4.6 mg/dL (17.0-42.0); PROTEIN TOTAL SERUM 4.9 g/dL (6.0-8.3)
== END 2016-12-17 22:38 | disposition expired | DRG 853 ==
LOC: CED 14:20 → CICCU3 18:55 → CEDOF 18:55 → CED 18:55 → CEDOF 21:30 → CICCU3 21:30 → CEDOF 22:25 → CICCU3 12-15 04:36 → C2A 12-17 11:17
PROVIDERS: Internal Medicine; Internal Medicine Cardiovascular Disease; Specialist
PROC: 0DNW0ZZ Release Peritoneum, Open Approach (ICD-10-PCS; principal; 2016-12-14 19:00)
PROC: 5A1945Z Respiratory Ventilation, 24-96 Consecutive Hours (ICD-10-PCS; 2016-12-15)
PROC: B24BZZZ Ultrasonography of Heart with Aorta (ICD-10-PCS; 2016-12-15)
PROC: 0BH17EZ Insertion of Endotracheal Airway into Trachea, Via Natural or Artificial Opening (ICD-10-PCS; 2016-12-15)
PROC: 05HM33Z Insertion of Infusion Device into Right Internal Jugular Vein, Percutaneous Approach (ICD-10-PCS; 2016-12-15)
DX: A41.9 Sepsis, unspecified organism (principal); K65.9 Peritonitis, unspecified; J96.01 Acute respiratory failure with hypoxia; R57.1 Hypovolemic shock; N17.9 Acute kidney failure, unspecified; K56.5 Intestinal adhesions [bands] with obstruction (postinfection); K55.9 Vascular disorder of intestine, unspecified; I11.0 Hypertensive heart disease with heart failure; I50.9 Heart failure, unspecified; E87.2 Acidosis; R65.20 Severe sepsis without septic shock; I48.91 Unspecified atrial fibrillation; E83.39 Other disorders of phosphorus metabolism; E83.42 Hypomagnesemia; M19.90 Unspecified osteoarthritis, unspecified site; K21.9 Gastro-esophageal reflux disease without esophagitis; I25.10 Atherosclerotic heart disease of native coronary artery without angina pectoris; Z95.1 Presence of aortocoronary bypass graft; I73.9 Peripheral vascular disease, unspecified; E78.5 Hyperlipidemia, unspecified; N40.0 Benign prostatic hyperplasia without lower urinary tract symptoms; J44.9 Chronic obstructive pulmonary disease, unspecified; Z82.49 Family history of ischemic heart disease and other diseases of the circulatory system; Z66 Do not resuscitate
CPT/HCPCS: 36415; 36600; 71010; 74176; 80048; 80053; 80076; 81003; 82550; 82553; 82803; 82947; 83605; 83690; 83735; 84100; 84134; 84484; 85025; 85730; 87040; 87070; 87077; 87186; 87205; 87449; 87899; 93005; 93306; 94002; 94003; 94640; 94660; 99291; C9113; J0282; J0330; J1170; J1644; J1940; J2060; J2270; J2370; J2405; J2543; J2710; J2920; J3010; J3475